=== PATIENT | female | born 2000 | race Caucasian/White ===

== ENCOUNTER 2020-04-26 08:33 | Emergency (ER) | payer OTHER ==
--- NOTE | 2020-04-26 09:06 | EDM.PDOC ---
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 Patient believes she was 5 weeks and taken home test. Patient reports that she had a large amount of blood but denies any tissues or clots. Patient has some lower abdominal cramping denies any urinary symptoms fever chills nausea vomiting fatigue. 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 History: Reports: None Musculoskeletal History: Reports: None Neurological History: Reports: None Psychiatric History: Reports: None Endocrine/Metabolic History: Reports: None Hematologic History: Reports: None Immunologic History: Reports: None Oncologic (Cancer) History: Reports: None Dermatologic History: Reports: None - Infectious Disease History Infectious Disease History: Reports: None - Past Surgical History Head Surgeries/Procedures: Reports: None HEENT Surgical History: Reports: None Cardiovascular Surgical History: Reports: None Respiratory Surgical History: Reports: None GI Surgical History: Reports: None Female Surgical History: Reports: None Endocrine Surgical History: Reports: None Neurological Surgical History: Reports: None Musculoskeletal Surgical History: Reports: None Dermatological Surgical History: Reports: None Social & Family History - Family History Family Medical History: Noncontributory - Tobacco Use Tobacco Use Status *Q: Never Tobacco User - Caffeine Use Caffeine Use: Reports: Coffee - Recreational Drug Use Recreational Drug Use: No - Living Situation & Occupation Occupation: Employed ([employer]) ED ROS GENERAL - Review of Systems Review Of Systems: Comprehensive ROS is negative, except as noted in HPI. Constitutional: Reports: No Symptoms HEENT: Reports: No Symptoms Respiratory: Reports: No Symptoms Cardiovascular: Reports: No Symptoms Endocrine: Reports: No Symptoms GI/Abdominal: Reports: Abdominal Pain : Reports: Other (vaginal bleeding) Musculoskeletal: Reports: No Symptoms Skin: Reports: No Symptoms Neurological: Reports: No Symptoms Psychiatric: Reports: No Symptoms Hematologic/Lymphatic: Reports: No Symptoms Immunologic: Reports: No Symptoms ED EXAM, GENERAL - Physical Exam Exam: See Below General Appearance: Alert, No Apparent Distress Respiratory/Chest: No Respiratory Distress Cardiovascular: Normal Peripheral Pulses, Regular Rate, Rhythm GI/Abdominal: Normal Bowel Sounds, Soft, Non-Tender (Female) Exam: Normal External Exam Neurological: Alert, Oriented, Normal Cognition, Normal Gait Course - Vital Signs Last Recorded V/S: Last Vital Signs Temp 96.8 F L 04/26/20 08:42 Pulse 69 04/26/20 10:12 Resp 16 04/26/20 08:42 BP 126/68 04/26/20 10:12 Pulse Ox 99 04/26/20 10:12 - Orders/Labs/Meds Labs: Laboratory Tests 04/26/20 04/26/20 04/26/20 Range/Units 09:48 09:48 09:48 WBC 10.31 (4.0-11.0) K/uL RBC 4.73 (4.30-5.90) M/uL Hgb 13.9 (12.0-16.0) g/dL Hct 41.3 (36.0-46.0) % MCV 87.3 (80.0-98.0) fL MCH 29.4 (27.0-32.0) pg MCHC 33.7 (31.0-37.0) g/dL RDW Std Deviation 41.1 (28.0-62.0) fl RDW Coeff of Fabiola 13 (11.0-15.0) % Plt Count 277 (150-400) K/uL MPV 8.60 (7.40-12.00) fL Neut % (Auto) 67.5 (48.0-80.0) % Lymph % (Auto) 24.5 (16.0-40.0) % Wheeler % (Auto) 6.3 (0.0-15.0) % Eos % (Auto) 1.5 (0.0-7.0) % Baso % (Auto) 0.2 (0.0-1.5) % Neut # (Auto) 7.0 H (1.4-5.7) K/uL Lymph # (Auto) 2.5 H (0.6-2.4) K/uL Wheeler # (Auto) 0.7 (0.0-0.8) K/uL Eos # (Auto) 0.2 (0.0-0.7) K/uL Baso # (Auto) 0.0 (0.0-0.1) K/uL Nucleated RBC % 0.0 /100WBC Nucleated RBCs # 0 K/uL Sodium 136 (136-145) mmol/L Potassium 3.9 (3.5-5.1) mmol/L Chloride 103 (98-107) mmol/L Carbon Dioxide 25.8 (21.0-32.0) mmol/L BUN 15 (7.0-18.0) mg/dL Creatinine 0.9 (0.6-1.0) mg/dL Est Cr Clr Drug Dosing 125.93 mL/min Estimated GFR (MDRD) > 60.0 ml/min Glucose 84 (74-106) mg/dL Calcium 9.0 (8.5-10.1) mg/dL HCG, Quant 16.0 mIU/mL Blood Type A POSITIVE Departure - Departure Time of Disposition: 11:04 Disposition: Home, Self-Care 01 Condition: Good Clinical Impression: demise due to miscarriage, Complete - Discharge Information *PRESCRIPTION DRUG MONITORING PROGRAM REVIEWED*: Not Applicable *COPY OF PRESCRIPTION DRUG MONITORING REPORT IN PATIENT DOMINICK: Not Applicable Instructions: Miscarriage, [id number] Referrals: PCP,None [Primary Care Provider] - Forms: ED Department Discharge Additional Instructions: The following information is given to patients seen in the emergency department who are being discharged to home. This information is to outline your options for follow-up care. We provide all patients seen in our emergency department with a follow-up referral. The need for follow-up, as well as the timing and circumstances, are variable depending upon the specifics of your emergency department visit. If you don't have a primary care physician on staff, we will provide you with a referral. We always advise you to contact your personal physician following an emergency department visit to inform them of the circumstance of the visit and for follow-up with them and/or the need for any referrals to a consulting specialist. The emergency department will also refer you to a specialist when appropriate. This referral assures that you have the opportunity for follow-up care with a specialist. All of these measure are taken in an effort to provide you with optimal care, which includes your follow-up. Under all circumstances we always encourage you to contact your private physician who remains a resource for coordinating your care. When calling for follow-up care, please make the office aware that this follow-up is from your recent emergency room visit. If for any reason you are refused follow-up, please contact the [facility] Emergency Department at and asked to speak to the emergency department charge nurse. Follow-up with your RAIL MANAGER doctor. Also have your labs drawn next few days. If you develop any increased pain increased bleeding weakness fatigue please return to the ED. Sepsis Event Note (ED) - Evaluation Sepsis Screening Result: No Definite Risk - Focused Exam Vital Signs: Vital Signs Temp Pulse Resp BP Pulse Ox 04/26/20 10:12 69 126/68 99 04/26/20 08:42 96.8 F L 77 16 113/72 98 - Assessment/Plan Plan: 19-year-old female presents today for vaginal bleeding abdomen +5 weeks will get labs Rh ultrasound and reassess. Patient made aware of labs and ultrasound findings. 2 days to have beta-hCG redrawn. Patient is having any signs of ectopic . Patient has RAIL MANAGER that she can follow-up with. We will have patient beta listed will follow up in.
--- NOTE | 2020-04-26 10:33 | US ---
Indication: Bleeding in the setting of early Technique: Ultrasound examination of the gravid uterus was performed. The study was performed transvaginally only Comparison: Findings: The uterus measures 8.9 x 4.4 x 4.2 centimeters. The endometrium is minimally heterogeneous but not thickened at 1 centimeter. There is no evidence intrauterine . No fluid collection, yolk sac or pole identified within the uterus. No clearly evident pseudo gestational reaction. The ovaries are normal in size. The right ovary measures 2.8 x 2.9 x 1.6 centimeters and the left ovary measures 2.5 x 11.9 x 2.0 centimeters. There is no fluid in the cul de sac. There is no adnexal mass. Ovarian Doppler is normal without evidence of torsion Impression: 1. There is no evidence of , normal or otherwise. No IUP visible. 2. No adnexal mass or free fluid. 3. Differential considerations include very early IUP or demise. An ectopic is possible but there is no direct findings for ectopic . Follow-up as clinically appropriate as guided by HCG and clinical criteria. Dictated by Tremayne Crump MD @ Apr 26 2020 10:30AM Signed by Dr. Tremayne Crump @ Apr 26 2020 10:33AM
[2020-04-26 10:40] LABS: BLOOD UREA NITROGEN,BUN 15 mg/dL (7.0-18.0); CARBON DIOXIDE,CO2 25.8 mmol/L (21.0-32.0); CHLORIDE,CL 103 mmol/L (98-107); GLUCOSE RANDOM 84 mg/dL (74-106); POTASSIUM,K 3.9 mmol/L (3.5-5.1); SODIUM,NA 136 mmol/L (136-145)
== END 2020-04-26 11:16 | disposition home or self-care (01) ==
LOC: MW.ED 08:33
DX: O02.1 Missed abortion (principal)
CPT/HCPCS: 36415; 76801; 76801-26; 80048; 84702; 85025; 86900; 86901; 99283; 99284-25